=== PATIENT | female | born 1990 | race Caucasian/White ===

== ENCOUNTER 2023-12-03 15:48 | Inpatient (IN) ==
[2023-12-03] MEDS: Morphine 4 MG/ML VIAL (1 ml) IV ONE ×2 (16:35→21:22)
[2023-12-03] MEDS: Ondansetron 4 mg VIAL 2 MG/ML 2 ml VIAL IV ONE (16:35)
[2023-12-03] MEDS: NS 0.9% 1000 ml BAG 1,000 ML IV ONE ×2 (16:57→21:19)
[2023-12-03 17:15] LABS: Hematocrit 28.6 % (35-45); Mean Corpuscular Hemoglobin 22.4 pg (27-33); Mean Corpuscular Hgb Conc 31.6 g/dL (31-36); Mean Corpuscular Volume 70.9 fL (80-97); Red Blood Count 4.04 10^6/uL (3.63-4.92); Red Cell Distribution Width 24.6 % (12-17); White Blood Count 5.3 10^3/uL (3.8-11.8)
[2023-12-03 17:53] LABS: ABS Basophils 0.1 10^3/uL (0.0-0.1); ABS Eosinophils 0.1 10^3/uL (0.0-0.5); ABS Lymphocytes 1.2 10^3/uL (1.0-4.8); ABS Monocytes 0.5 10^3/uL (0.0-0.9); ABS Neutrophils 3.5 10^3/uL (1.5-7.6); Anisocytosis 1+; Eosinophil % 1.3 %; Hypochromasia 1+; Lymphocyte % 22.2 %; Mean Platelet Volume 8.1 fL (7.5-11.2); Microcytosis 2+; Platelet Count 118 10^3/uL (150-450)
[2023-12-03 18:11] LABS: Anion Gap 12 mmol/L (2-16); Blood Urea Nitrogen 3 mg/dL (6-24); C Reactive Protein 4.57 mg/L (<8.01); CO2 Carbon Dioxide 23 mmol/L (22-32); Calcium 9.5 mg/dL (8.6-10.3); Chloride 99 mmol/L (101-111); Creatinine, Serum 0.45 mg/dL (0.51-0.95); Glucose 109 mg/dL (70-100); Potassium 3.7 mmol/L (3.5-5.0); Sodium 134 mmol/L (135-145); eGFR CKD-EPI 130.2 (>60)
[2023-12-03 18:16] LABS: HCG Pregnancy < 0.60 mIU/mL
[2023-12-03 18:38] LABS: ALT 52 U/L (7-52); AST 151 U/L (13-39); Albumin 4.4 g/dL (3.2-5.2); Alkaline Phosphatase 231 U/L (35-149); Globulin 4.3 g/dL (2-4); Total Bilirubin 1.1 mg/dL (0.2-1.0); Total Protein 8.7 g/dL (6.4-8.9)
[2023-12-03 20:08] LABS: Lipase 1628 U/L (11.0-82.0)
[2023-12-03] MEDS: KCL 20 MEQ/100 ML IVPREMIX 20 MEQ/100 ML BAG IV ONE (22:19)
[2023-12-03 22:42] LABS: Alcohol, S < 13 mg/dL (<13)
[2023-12-03 22:46] LABS: % Iron Saturation 3 % (15-55); .Transferrin 411 mg/dL (203-362); Iron < 20 ug/dL (50-212); Magnesium 1.7 mg/dL (1.9-2.7); Total Iron Binding Capacity 575 mcg/dL (250-450); Unsaturated Iron Binding 555 ug/dL
[2023-12-03] MEDS ORDERED: LORazepam 2 mg VIAL 1 ml IV PUSH SCH ×2 (23:00→23:07)
[2023-12-03 23:08] LABS: Ferritin 13.4 ng/mL (11-307)
[2023-12-03 23:12] LABS: Folate 15.09 ng/mL (5.90-24.80)
[2023-12-03 23:13] LABS: Vitamin B12 707 pg/mL (180-914)
[2023-12-03 23:24] LABS: Activated Partial Thrombo Time 35.5 seconds (26.0-38.0); INR 1.73 (0.85-1.14)
[2023-12-03] MEDS ORDERED: Lorazepam PYXIS KEY PRN (23:26)
[2023-12-03 23:56] LABS: TSH Ultra Thyroid Stim Horm 0.98 mcIU/mL (0.34-5.60)
[2023-12-04] MEDS ORDERED: Morphine 2 MG/ML SYRINGE IV PRN ×3 (00:16→09:02)
[2023-12-04] MEDS ORDERED: Acetaminophen IV 1 GM/100ML 1,000 MG/100 ML BAG IV SCH (00:30)
[2023-12-04] MEDS: Ondansetron 4 mg VIAL 2 MG/ML 2 ml VIAL IV PRN (00:57)
[2023-12-04] MEDS: HYDROmorphone 0.5 MG/0.5 ML SYRINGE IV SLOW PU PRN ×2 (01:01→11:48)
[2023-12-04] MEDS: Magnesium Sulfate 2 gm BAG 2 GM/50 ML BAG IVPB ONE (01:02)
[2023-12-04] MEDS: Multivitamins/Minerals TAB PO SCH (01:02)
[2023-12-04] MEDS: Lactated Ringers 1000 ml BAG 1,000 ML IV ONE (01:03)
[2023-12-04] MEDS: Thiamine 100 MG/ML 2 ml VIAL (200 mg) IM ONE (01:13)
[2023-12-04] MEDS: Pantoprazole VIAL 40 MG VIAL IV SCH (02:01)
[2023-12-04] MEDS: Magnesium Sulfate IV 1GM/100ML 1 GM/100 ML BAG IV ONE (02:04)
[2023-12-04] MEDS: Ferric Gluconate IV 250 MG in NS 0.9% 250 ml 200 ML IVPB SCH (02:43)
[2023-12-04 05:14] LABS: Urine Appearance Turbid; Urine Bilirubin Negative (Negative); Urine Blood Negative (Negative); Urine Color Yellow; Urine Glucose Negative (Negative); Urine Ketones Negative (Negative); Urine Nitrite Negative (Negative); Urine Protein Negative (Negative); Urine Urobilinogen Negative (Negative); Urine pH 5.5 (5.0-8.0)
[2023-12-04] MEDS: Heparin 5000 UNITS/ML 1 mL VIAL SUBCUT SCH (05:40)
[2023-12-04 07:22] LABS: Urine Amorphous Crystals Present /HPF (Absent); Urine Bacteria Absent /HPF (Absent); Urine Red Blood Cell 1+(3-5/hpf) /HPF (0-Trace); Urine Squamous Epithelial Cell Present /HPF (Absent); Urine White Blood Cell Trace(0-5/hpf) /HPF (0-Trace)
[2023-12-04] MEDS: cefTRIAXone 1 gm/50 mL D5W 1 GM/50 ML BAG IV SCH ×2 (07:58→11:13)
[2023-12-04 08:34] LABS: ABS Basophils 0.1 10^3/uL (0.0-0.1); ABS Eosinophils 0.1 10^3/uL (0.0-0.5); ABS Monocytes 0.3 10^3/uL (0.0-0.9); ABS Neutrophils 1.8 10^3/uL (1.5-7.6); ABS Nucleated RBC 0.01 10^3/ul; Eosinophil % 2.2 %; Hematocrit 25.5 % (35-45); Hemoglobin 8.1 g/dL (11.5-14.3); Lymphocyte % 30.5 %; Mean Corpuscular Hemoglobin 22.5 pg (27-33); Mean Corpuscular Hgb Conc 31.6 g/dL (31-36); Mean Corpuscular Volume 71.1 fL (80-97); Mean Platelet Volume 8.1 fL (7.5-11.2); Nucleated Red Blood Cells % 0.3 %/100WBC (0.0-0.8); Platelet Count 75 10^3/uL (150-450); Red Blood Count 3.59 10^6/uL (3.63-4.92); Red Cell Distribution Width 25.1 % (12-17); White Blood Count 3.1 10^3/uL (3.8-11.8)
[2023-12-04] MEDS: Lactulose 30 ml UDC PO SCH (08:47)
[2023-12-04] MEDS: NF: Pancrelipase 24,000 units (NF) PO SCH (08:56)
[2023-12-04] MEDS: Lactated Ringers 1000 ml BAG 1,000 ML IV SCH (09:18)
[2023-12-04 10:45] LABS: Albumin 3.6 g/dL (3.2-5.2); Albumin/Globulin Ratio 1.1 (1-3); Calcium 7.9 mg/dL (8.6-10.3); Creatinine, Serum 0.43 mg/dL (0.51-0.95); Globulin 3.4 g/dL (2-4); Potassium 3.5 mmol/L (3.5-5.0); Total Bilirubin 1.1 mg/dL (0.2-1.0); eGFR CKD-EPI 131.6 (>60)
[2023-12-04] MEDS: Pancrelipase 5,000 units CAP PO SCH (13:17)
[2023-12-05 06:34] LABS: Hematocrit 24.4 % (35-45); Hemoglobin 7.7 g/dL (11.5-14.3); Mean Corpuscular Hemoglobin 22.8 pg (27-33); Mean Corpuscular Hgb Conc 31.7 g/dL (31-36); Mean Corpuscular Volume 71.7 fL (80-97); Mean Platelet Volume 8.1 fL (7.5-11.2); Platelet Count 77 10^3/uL (150-450); Red Cell Distribution Width 25.3 % (12-17); White Blood Count 2.6 10^3/uL (3.8-11.8)
[2023-12-05 07:07] LABS: Calcium 8.3 mg/dL (8.6-10.3); Creatinine, Serum 0.48 mg/dL (0.51-0.95); Potassium 3.5 mmol/L (3.5-5.0); eGFR CKD-EPI 128.2 (>60)
[2023-12-05] MEDS: Lactated Ringers 1000 ml BAG 1,000 ML IV SCH (16:22)
[2023-12-06 07:16] LABS: Calcium 8.5 mg/dL (8.6-10.3); Creatinine, Serum 0.48 mg/dL (0.51-0.95); Potassium 3.8 mmol/L (3.5-5.0); eGFR CKD-EPI 128.2 (>60)
[2023-12-06 08:39] LABS: Hematocrit 22.5 % (35-45); Hemoglobin 7.1 g/dL (11.5-14.3); Mean Corpuscular Hemoglobin 22.8 pg (27-33); Mean Corpuscular Hgb Conc 31.5 g/dL (31-36); Mean Corpuscular Volume 72.4 fL (80-97); Mean Platelet Volume 8.1 fL (7.5-11.2); Platelet Count 74 10^3/uL (150-450); Red Cell Distribution Width 25.9 % (12-17); White Blood Count 2.6 10^3/uL (3.8-11.8)
[2023-12-06 08:40] LABS: ABS Eosinophils 0.1 10^3/uL (0.0-0.5); ABS Lymphocytes 0.8 10^3/uL (1.0-4.8); ABS Monocytes 0.4 10^3/uL (0.0-0.9); ABS Neutrophils 1.2 10^3/uL (1.5-7.6); Anisocytosis 2+; Eosinophil % 3.1 %; Hypochromasia 1+; Lymphocyte % 31.5 %; Nucleated Red Blood Cells % 0.1 %/100WBC (0.0-0.8); Polychromasia 1+
[2023-12-06] MEDS: Lactulose 30 ml UDC PO SCH (10:37)
[2023-12-06] MEDS: Lactated Ringers 1000 ml BAG 1,000 ML IV SCH (12:00)
[2023-12-06] MEDS: Morphine 2 MG/ML SYRINGE IV PRN ×2 (14:08→20:44)
[2023-12-06] MEDS: Morphine 2 MG/ML SYRINGE IV ONE (18:21)
[2023-12-06] MEDS: Senna TAB 8.6 mg TAB PO SCH (20:32)
[2023-12-06] MEDS: Morphine 2 MG/ML SYRINGE IV SCH (23:34)
[2023-12-07 07:08] LABS: Hematocrit 24.2 % (35-45); Hemoglobin 7.7 g/dL (11.5-14.3); Mean Platelet Volume 8.1 fL (7.5-11.2); Platelet Count 77 10^3/uL (150-450); Red Blood Count 3.36 10^6/uL (3.63-4.92); Red Cell Distribution Width 26.7 % (12-17); White Blood Count 2.2 10^3/uL (3.8-11.8)
[2023-12-07 07:33] LABS: Albumin 3.4 g/dL (3.2-5.2); Albumin/Globulin Ratio 1.1 (1-3); Calcium 8.7 mg/dL (8.6-10.3); Creatinine, Serum 0.57 mg/dL (0.51-0.95); Globulin 3.2 g/dL (2-4); Potassium 3.7 mmol/L (3.5-5.0); Total Bilirubin 0.7 mg/dL (0.2-1.0); Total Protein 6.6 g/dL (6.4-8.9)
[2023-12-07 16:09] LABS: Immature Retic Fraction 0.53
[2023-12-07 16:52] LABS: Uric Acid 3.3 mg/dL (2.3-6.6)
[2023-12-07 17:29] LABS: RBC Parasite Smear No Parasites Seen (No Parasite)
[2023-12-07 17:49] LABS: Corrected Retic Count 2.1 % (0.5-2.2); Hematocrit for Retic CNT 24.1 % (35-45); RBC Retic Count 3.33 10^6/ul (3.63-4.92)
[2023-12-07] MEDS: Enoxaparin 40 MG/0.4 ML SYR SUBCUT SCH (20:40)
[2023-12-08 07:24] LABS: Hemoglobin 7.7 g/dL (11.5-14.3); Mean Corpuscular Hemoglobin 23.5 pg (27-33); Mean Corpuscular Hgb Conc 32.2 g/dL (31-36); Mean Platelet Volume 8.3 fL (7.5-11.2); Platelet Count 96 10^3/uL (150-450); Red Blood Count 3.28 10^6/uL (3.63-4.92); Red Cell Distribution Width 27.4 % (12-17); White Blood Count 2.7 10^3/uL (3.8-11.8)
[2023-12-08 07:32] LABS: INR 1.58 (0.85-1.14)
[2023-12-08 07:50] LABS: Albumin 3.4 g/dL (3.2-5.2); Albumin/Globulin Ratio 1.1 (1-3); Calcium 8.6 mg/dL (8.6-10.3); Creatinine, Serum 0.5 mg/dL (0.51-0.95); Globulin 3.1 g/dL (2-4); Potassium 3.6 mmol/L (3.5-5.0); Total Bilirubin 0.6 mg/dL (0.2-1.0); Total Protein 6.5 g/dL (6.4-8.9); eGFR CKD-EPI 126.9 (>60)
[2023-12-08 13:55] LABS: Anaplasma phagocytophilum Negative (Negative); B. miyamotoi PCR, B Negative (Negative); Babesia divergens/MO-1 Negative (Negative); Babesia ducani Negative (Negative); Ehrlichia chaffeensis Negative (Negative); Ehrlichia ewingii/canis Negative (Negative); Ehrlichia muris eauclairensis Negative (Negative)
[2023-12-08] MEDS: Lactated Ringers 1000 ml BAG 1,000 ML IV SCH (15:51)
[2023-12-08] MEDS: Morphine 2 MG/ML SYRINGE IV SCH (20:05)
[2023-12-09 08:48] LABS: Albumin 3.3 g/dL (3.2-5.2); Albumin/Globulin Ratio 1.1 (1-3); Calcium 8.4 mg/dL (8.6-10.3); Creatinine, Serum 0.51 mg/dL (0.51-0.95); Globulin 3.1 g/dL (2-4); Potassium 3.9 mmol/L (3.5-5.0); Total Bilirubin 0.7 mg/dL (0.2-1.0); Total Protein 6.4 g/dL (6.4-8.9); eGFR CKD-EPI 126.3 (>60)
[2023-12-09 10:55] LABS: ABS Basophils 0.1 10^3/uL (0.0-0.1); ABS Eosinophils 0.1 10^3/uL (0.0-0.5); ABS Lymphocytes 0.7 10^3/uL (1.0-4.8); ABS Monocytes 0.4 10^3/uL (0.0-0.9); ABS Neutrophils 1.5 10^3/uL (1.5-7.6); Eosinophil % 2.7 %; Hematocrit 26.4 % (35-45); Hemoglobin 8.5 g/dL (11.5-14.3); Lymphocyte % 26.8 %; Mean Corpuscular Hemoglobin 23.5 pg (27-33); Mean Corpuscular Volume 73.3 fL (80-97); Mean Platelet Volume 8.1 fL (7.5-11.2); Nucleated Red Blood Cells % 0.1 %/100WBC (0.0-0.8); Platelet Count 114 10^3/uL (150-450); Red Blood Count 3.61 10^6/uL (3.63-4.92); Red Cell Distribution Width 28.3 % (12-17); White Blood Count 2.8 10^3/uL (3.8-11.8)
[2023-12-10] MEDS: Morphine 2 MG/ML SYRINGE IV PRN (01:12)
[2023-12-10 07:31] LABS: Albumin 3.4 g/dL (3.2-5.2); Calcium 8.5 mg/dL (8.6-10.3); Creatinine, Serum 0.53 mg/dL (0.51-0.95); Globulin 3.3 g/dL (2-4); Magnesium 1.6 mg/dL (1.9-2.7); Phosphorus 4.6 mg/dL (2.5-5.0); Potassium 3.5 mmol/L (3.5-5.0); Total Bilirubin 0.7 mg/dL (0.2-1.0); Total Protein 6.7 g/dL (6.4-8.9); eGFR CKD-EPI 125.2 (>60)
[2023-12-10 08:22] LABS: ABS Basophils 0.1 10^3/uL (0.0-0.1); ABS Eosinophils 0.1 10^3/uL (0.0-0.5); ABS Lymphocytes 1.3 10^3/uL (1.0-4.8); ABS Monocytes 0.6 10^3/uL (0.0-0.9); ABS Neutrophils 1.4 10^3/uL (1.5-7.6); Anisocytosis 2+; Hematocrit 25.7 % (35-45); Hemoglobin 8.2 g/dL (11.5-14.3); Hypochromasia 1+; Lymphocyte % 37.6 %; Mean Corpuscular Hemoglobin 23.7 pg (27-33); Mean Corpuscular Volume 73.9 fL (80-97); Mean Platelet Volume 8.5 fL (7.5-11.2); Microcytosis 2+; Nucleated Red Blood Cells % 0.1 %/100WBC (0.0-0.8); Platelet Count 124 10^3/uL (150-450); Polychromasia 1+; Red Blood Count 3.47 10^6/uL (3.63-4.92); Red Cell Distribution Width 29.4 % (12-17); White Blood Count 3.6 10^3/uL (3.8-11.8)
[2023-12-10] MEDS: Magnesium Sulfate 2 gm BAG 2 GM/50 ML BAG IVPB ONE (10:41)
[2023-12-10 14:58] LABS: Cytomegalovirus IgG Antibody Positive (Negative); EBV Capsid Ag IgG Ab Positive (Negative); EBV Capsid Ag IgM Ab Negative (Negative); Epstein-Barr Nuclear Antigen Positive (Negative)
[2023-12-11 09:30] VITALS: BP 110/77
[2023-12-11 15:05] LABS: Flag, M-protein Isotype Negative (Negative); Immunoglobulin A (IgA), S 506 mg/dL (61 - 356); Immunoglobulin G (IgG), S 1800 mg/dL (767 - 1590); Immunoglobulin M (IgM), S 231 mg/dL (37 - 286)
== END 2023-12-11 14:45 | disposition home or self-care (01) | DRG 439 ==
LOC: EDHOLD 15:48 → ED 15:48 → SUATTDRO 22:18 → MED 22:59 → SUATTDRO 12-05 17:03
PROVIDERS: ADMIT Internal Medicine; ATTEND Internal Medicine